=== PATIENT | female | born 1985 | race Caucasian/White ===

== ENCOUNTER 2025-07-19 12:22 | Emergency (ER) | payer OTHER, SELFPAY ==
--- NOTE | ~2025-07-19 | XR_ITS ---
XR ankle LT min 3V 07/19/2025 12:56 Indication: Left ankle pain after injury Procedure: 4 views left ankle Comparison: No prior studies for comparison. Findings: There is an ossific density medial to the talus, likely related to remote trauma. There is moderate lateral soft tissue swelling. No acute fracture or traumatic malalignment. Talar dome is unremarkable. No foreign bodies. There is a degenerative calcaneal enthesophyte. Impression: 1: No acute fracture. Reviewed, dictated and finalized at location O. Impression: 1: No acute fracture.
[2025-07-19 12:22] VITALS: BP 139/89; PULSE 76; RESP 20; TEMP 36.6; O2SAT 100
--- NOTE | 2025-07-19 12:26 | ED_ITS ---
HPI - Extremity Injury (Lower) General Chief Complaint: Extremity Injury, Lower Stated Complaint: rolled left ankle Time Seen by Provider: 07/19/25 13:06 Source: patient and RN notes reviewed Mode of arrival: ambulatory Limitations: no limitations History of Present Illness HPI Narrative: 39-year-old female presents with concern for left ankle pain. Reports she rolled her ankle.. Reports medial ankle pain. Reports it has been swollen. She has been using ibuprofen daily, using an Ez wrap it, elevating and putting ice on the ankle. MD complaint: ankle injury Related Data Home Medications ?Medication ?Instructions ?Recorded ?Confirmed ?Last Taken ?Type etonogestrel subdermal 07/19/25 Unknown History nifedipine 90 mg tablet,extended mg PO 07/19/25 Unkno wn History release Allergies Allergy/AdvReac Type Severity Reaction Status Date / Time Sulfa (Sulfonamide Allergy Unknown Unknown Verified 07/19/25 12:39 Antibiotics) Review of Systems Review of Systems: CONSTITUTIONAL: Denies malaise, chills, sweats, or fever. SKIN: Denies rash or itching, open skin, laceration, abrasion, redness, warmth MUSCULOSKELETAL: Reports left ankle pain and swelling NEUROLOGIC: Denies numbness, weakness All systems reviewed & are unremarkable except as noted in HPI and below PMFSH Comments At time of signature, agree with nursing past medical, surgical, social and family history. There is no relevant family history pertinent to the presenting complaint Exam Narrative: GENERAL: Well-appearing, well-nourished, and in no acute distress. HEAD: Normocephalic, atraumatic. EYES: PERRLA, conjunctivae clear NECK: Supple. CHEST: Speaks in full sentences. No respiratory distress. HEART: Regular rate and rhythm. Normal and equal peripheral pulses. EXTREMITIES: Left ankle, foot, digits have grossly normal strength and sensation, grossly normal range of motion. Mild edema without erythema, warmth, ecchymosis. Normal sensation with sensitivity to light touch and pain. No point tenderness. No open wounds, no skin tenting, no devitalized tissue or atrophy, no trophic changes, no obvious deformity, alignment normal, nearby joints and structures intact. Distal pulses palpable and equal bilaterally, skin warm, dry, pink. Capillary refill less than 3 seconds. SKIN: Warm, dry, no rash. NEURO: Alert and oriented x3. PSYCH: Normal mood and affect Course Course Emergency Course: Patient is aware of diagnosis, understands and agrees to treatment plan. Anticipatory guidance given. Patient agrees to follow-up as directed and is aware of reasons to seek care at the emergency department. Portions of this record may have been created with voice recognition software Level of Care: Express Care Visit Vital Signs Vital signs: Reviewed. MDM - Extremity Injury (Lower) MDM Narrative Medical decision making narrative: The patient was evaluated by myself in the express care. History is obtained from patient who is an independent historian and physical exam was performed.? Available medical records were reviewed at this time. ? Exam findings show no acute concerns or changes; patient is non-toxic appearing and is in no distress. Patient is appropriate for outpatient treatment and follow-up. ? I have evaluated and discussed social determinants of health with the patient that could potentially impact subsequent diagnosis and treatment plans. ? Patients injury and pain is consistent with musculoskeletal etiology. No signs of neurological or vascular compromise on exam. Compartments and tissues are soft without signs of compartment syndrome. Pain is felt appropriate for further evaluation on an outpatient basis. Imaging Data My impression: Images reviewed, interpreted by radiologist, agree, see report. Radiologist's impression: XR ankle LT min 3V 07/19/2025 12:56 Indication: Left ankle pain after injury Procedure: 4 views left ankle Comparison: No prior studies for comparison. Findings: There is an ossific density medial to the talus, likely related to rem ote trauma. There is moderate lateral soft tissue swelling. No acute fracture or traumatic malalignment. Talar dome is unremarkable. No foreign bodies. There is a degenerative calcaneal enthesophyte. Impression: 1: No acute fracture. Critical Care Time Critical Care Time Critical Care Time: No Discharge Plan Discharge Clinical Impression: Ankle sprain and strain Patient Disposition: Home Condition: Stable Instructions: Ankle Sprain (ED) Additional Instructions: Avoid activities that cause pain until the pain subsides. Ice to the area 20-30 minutes 4-6 times a day Elevate above heart Elastic wrap or orthopedic splint as directed for comfort for the next 5-7 days Tylenol for lesser pain Ibuprofen regularly for the next 2-3 days for the inflammation Follow up with your primary care provider if the condition is not improving within 1 week. If the condition worsens with numbness, tingling, decrease sensation with weakness seek treatment in the emergency room immediately. Patient Language: Azeri Prescriptions: New ibuprofen 800 mg tablet 800 mg PO Q6H PRN (Reason: pain) Qty: 30 0RF No Action nifedipine 90 mg tablet extended release PO etonogestrel [Nexplanon] subdermal Follow-up/Referrals: PHYSICIAN,[facility] [Primary Care Provider, Internal Medicine] Stand Alone Forms: Work/School Release IP Time of Disposition: 13:15
--- OUTSIDE RECORDS SUMMARY | 2025-07-19 12:31 | XMS_ITS | Clinical Summary ---
Author Organization [facility] Healthcare Address [address] [place] [address] Care Team Providers Care Air Pollution Specialist Name Role Phone Minerva Raza MD Primary Care Prov ider Allergies Active Allergy Reactions Criticality Noted Date Comments Sulfa (Sulfonamide Antibiotics) Other (See comments) Low 05/09/2018 Ann Johnsons Syndrome Sukhi Kirk Syndrome Medications NIFEdipine CC 90 mg 24 hr tablet Take 1 tablet (90 mg total) by mouth daily for 30 days 06/10/2024 Active famotidine (PEPCID) 20 mg tablet Take 1 tablet (20 mg total) by mouth 2 (two) times a day as needed Active multivitamin with minerals tablet Take 1 tablet by mouth daily Active oxyCODONE-aceta minophen (PERCOCET) 5-325 mg per tabletIndicatio ns:Pain Take 1-2 tablets by mouth every 8 (eight) hours as needed for pain 20 tablet 04/11/2025 Active ibuprofen (ADVIL,MOTRIN) 800 mg tablet Take 1 tablet (800 mg total) by mouth 3 (three) times a day 21 tablet 06/16/2025 Active amoxicillin-cla vulanate (AUGMENTIN) 875-125 mg per tablet Take 1 tablet by mouth every 12 (twelve) hours for 10 days 20 tablet 06/16/2025 06/26/20 25 Active Problems Problem Noted Date Diagnosed Date Encounter for female sterilization procedure 06/2024 Breast abscess 08/09/2024 Abscess of breast 08/09/2024 Chronic hypertension in 07/24/2024 HROB: 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 Proximal femoral focal deficiency is a complex defect in which the upper part of the femur bone (in the thigh) is either malformed or missing, causing one leg to be shorter than the other. Affects about 1 in every 200,000 children, and can vary in severity from child to child. Often children with PFFD have other bone and muscle disorders -- such as malrotation, limb-length discrepancies, fibular hemimelia, joint instability and muscle weakness. Not genetically linked. Offered early anatomy - declined. Does not change her desire to carry . Plan: [x] Specialized anatomy scan at 20 weeks gestation, referred for anatomy given c/f tethered spinal cord, see problem HROB: Marijuana use during 02/06/2024 Overview (02/06/2024): UDS positive for THC at IOB visit with Dr. Gill. 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 Plan: [ ] Valtrex suppression at 36 weeks, to be prescribed by primary Ob HROB: 02/03/2024 Overview (06/28/2024): PNC tasks being performed by Dr. Gill. Per patient report, GTT not performed given nausea/vomiting in , BG have been WNL on weekly labs. 3T labs and TDap UTD. Discussed recommendation for ANT given cHTN. Anatomy US with limited views due to advanced GA (Missing Neck, profile, RVOT, 3V view, ductal arch, abdominal cord insert, lumbar/sacral spine, R forearm, R+L fingers), but on review of images by fellow/attending, no evidence of spinal anomaly. - Continue PNC with primary Ob, delivery appropriate at local hospital given current clinical status 1st Trimester: [x] Dating Criteria: FORREST 08/13/2024 based on 1T ultrasound [x] Labs: Rh pos, Ab neg, CBC wnl, Rubella imm, VZV non-imm, HIV NR, RPR NR, HepBSAg NR, Hep C Ab NR [x] vitamins [x] Genetic Screening: LR NIPT [x] Pap: Due, to be collected by primary Rouge Miller [x] EPDS: PNBHS referral (if indicated) [x] ASA at 12 weeks (if indicated) [x] DM screening: HgbA1c 5.0 2nd Trimester: [x] Anatomy ultrasound: See above [x] 1hr GTT (24-28wks): WNL per patient [x] Tdap (27-36wks): Received previously per patient 3rd Trimester: [x] CBC/HIV/RPR/T&S: WNL per patient report [x] GBS: To be obtained by primary Ob HROB: Nabeel, history of pre-eclampsia 02/03/2024 Overview (06/28/2024): Current regimen: nifedipine XL 90mg, LDASA Plan: [x] ASA at 12 weeks - taking [x] Labs (CBC, CMP, UPC) (3T repeats ordered today) [x] Serial growth ultrasound starting at 24 weeks [x] Weekly testing at 32 weeks (to be arranged by primary Ob) HROB: AMA 02/03/2024 Overview (06/28/2024): Age at delivery: 38 We discussed that advanced maternal age (AMA) is defined as maternal age >=35 years. This definition was made based on a historic risk associated with amniocentesis. AMA is associated with complications such as ectopic , spontaneous , chromosomal abnormalities, some congenital anomalies, placenta previa, gestational diabetes, preeclampsia, and delivery. Such complications may, in turn, result in . There is also an increased risk of mortality. We discussed with the patient that her risk of aneuploidy is 1 in 104 at age 38. We discussed available methods for genetic screening and diagnosis and at this time the patient desires . We also recommend detailed second-trimester ultrasound to assess for significant structural anomalies. testing may be considered based on cumulative risk, and we recommend testing above age 40. Plan/Summary of recommendations [x] Genetic testing: LR NIPT noted in chart [x] Baseline CBC/CMP/UPC ordered HROB: Bipolar 1 disorder 05/01/2017 Overview (06/28/2024): We reviewed depression/anxiety in . Generally, the risk of worsening depression or anxiety in is dependent on control prior to . Maternal depression has been associated with increased risk of and IUGR/SGA in some studies.Thus, regular follow-up with a mental health provider is recommended throughout her and . Previously discussed the management of anxiety/depression during , with an emphasis on optimizing maternal well being as untreated anxiety/depression can have devastating consequences. Patient denies concerns for manic episodes, last on medications at age 25. Current regimen: None PLAN: [x] Behavioral Health Referral Resolved Problems Problem Noted Date Diagnosed Date Resolved Date Incarcerated umbilical hernia 04/09/2025 05/09/2025 Hypertension in , b enign essential, delivered 05/20/2020 06/25/2024 Overview (08/02/2022): Had preeclampsia in 2018 . Was later diagnosed with chronic hypertension when blood pressures never resolved. Transiently required antihypertensives but was able to discontinue prior to . First BP on 02/18 was 134/88. Baseline 24 hour protein was 168 mg on 04/27. Last Assessment & Plan: Blood pressure appropriate without antihypertensives. Has started aspirin for preeclampsia prophylaxis. Maternal Medicine recommendations: 1. please submit a copy of the 24 hr urine results for review 1. orders given for this study and complete metabolic panel to be repeated if no results are provided by the referring production engine repairer 2. Goal blood pressures <155/95 1. No current indication for antihypertensive medication 3. Continue Aspirin ( 162 mg) 4. Serial growth every four weeks after 24 weeks 5. Daily kick count starting at 28 weeks 6. Weekly 10 point biophysical profile starting at 32 weeks 7. Delivery initiation at 39 weeks 8. Would benefit from Encounters Date Type Department Care Team Description 06/17/2025 11:48 PM CDT - 06/18/2025 12:20 AM CDT Emergency [facility] Emergency Department [address] [place] [address] Discharge Disposition: Left without being seen 06/15/2025 11:48 PM CDT - 06/16/2025 1:35 AM CDT Emergency [facility] Emergency Department [address] [place] [address] Dog bite of index finger, initial encounter (Primary Dx) Discharge Disposition: Discharge to home or self care 04/24/2025 1:25 PM CDT Office Visit [facility] [address] [facility] [address] [place] [id number] EyersLenore NP Incarcerated umbilical hernia (Primary Dx) from Last 3 Months Immunizations Immunization Administration Dates Next Due Rabies Immune Globulin 06/16/2025,06/16/2025,() Rabies Vaccine 06/16/2025 Tdap 06/16/2025 Surgical History Surgery Date Site/Laterality Comments DILATION AND CURETTAGE OF UTERUS INCISION AND DRAINAGE BREAST ABSCESS 08/09/2024 Left HERNIA REPAIR 04/11/2025 Umbilical Medical History Medical History Date Comments Saul-Kirk syndrome 2006 Hypertension GERD (gastroesophageal reflux disease) Umbilical hernia Social History Tobacco Use Types Packs/Day Years Used Date Smoking Tobacco: Former Cigarettes Q uit: 10/2011 Passive Smoke Exposure: Past Smokeless Tobacco: Never Tobacco Cessation:Counseling Given: No Alcohol Use Standard Drinks/Week Comments No 0 (1 standard drink = 0.6 oz pur e alcohol) [facility] Utilities Answer Date Recorded In the past 12 months has [facility] [place], gas, oil, or water [place] threatened to shut off services in your home? Yes 07/25/2024 Humiliation, Afraid, Rape, and Kick questionnair e Answer Date Recorded Within the last year, have y ou been afraid of your partner or ex-partner? No 07/25/2024 Within the last year, have y ou been humiliated or emotionally abused in other ways by your partner or ex-partner? No Within the last year, have y ou been kicked, hit, slapped, or otherwise physically hurt by your partner or ex-partner? No 07/25/2024 Within the last year, have y ou been raped or forced to have any kind of sexual activity by your partner or ex-partner? No 07/25/2024 Social Connection and Isolation Panel Answer Date Recorded In a typical week, how many times do you talk on the phone with family, friends, or neighbors? More than three times a week 07/25/2024 How often do you get togethe r with friends or relatives? Three times a week 07/25/2024 How often do you attend chur ch or restorationism services? Never 07/25/2024 Do you belong to any clubs o r organizations such as buddhist groups, unions, fraternal or athletic groups, or school groups? Yes 07/25/2024 How often do you attend meet ings of the clubs or organizations you belong to? More than 4 times per year 07/25/2024 Are you , , di vorced, , never , or living with a partner? Living with partner 07/25/2024 AUDIT-C Answer Date Recorded Q1: How often do you have a drink containing alc ohol? 2-3 times a week 04/11/2025 Q2: How many drinks containi ng alcohol do you have on a typical day when you are drinking? 1 or 2 04/11/2025 Q3: How often do you have si x or more drinks on one occasion? Never 04/11/2025 Overall Financial Resource Strain (CARDIA) Answe r Date Recorded How hard is it for you to pa y for the very basics like food, housing, medical care, and heating? Very hard 07/25/2024 PHQ-2 Answer Date Recorded PHQ-2 Total Score 0 07/25/2024 [facility] Occupational Stress Questionnaire Answer Date Recorded Do you feel stress - tense, restless, nervous, or anxious, or unable to sleep at night because your mind is troubled all the time - these days? Not at all 07/25/2024 Exercise Vital Sign Answer Date Recorde d On average, how many days pe r week do you engage in moderate to strenuous exercise (like a brisk walk)? 6 days 07/25/2024 On average, how many minutes do you engage in exercise at this level? 60 min 07/25/2024 Hunger Vital Sign Answer Date Recorded Within the past 12 months, y ou worried that your food would run out before you got the money to buy more. Never true 07/25/20 24 Within the past 12 months, t he food you bought just didn't last and you didn't have money to get more. Never true 07/25/2024 PRAPARE - Transportation Answer Date Re corded In the past 12 months, has l ack of transportation kept you from medical appointments or from getting medications? No 06/28 In the past 12 months, has l ack of transportation kept you from meetings, work, or from getting things needed for daily living? No 07/25/2024 [place] Depression Scale Answer Date Recorded [place] Depression Scale Total 2 07/25/2024 The thought of harming myself has occurred to me . Never 07/25/2024 PHQ-9 Answer Date Recorded PHQ-9 Total Score 3 06/20/2024 Housing Stability Vital Sign Answer Silvio e Recorded In the last 12 months, was t here a time when you were not able to pay the mortgage or rent on time? Yes 07/25/2024 In the past 12 months, how m any times have you moved where you were living? 1 07/25/2024 At any time in the past 12 m [facility], were you homeless or living in a detention (including now)? Yes 07/25/2024 Personal Safety Answer Date Recorded Have you ever been in or are you currently in a harmful physical or emotional relationship or is someone making you feel afraid or unsafe? Denies 06/17/2025 Comments No Sex and Gender Information Value Date Recorded Sex Assigned at Not on file Legal Sex Female 9:10 AM CDT Gender Identity Not on file Sexual Orientation Not on file Obstetrics History Para Term AB IAB SAB Ectopic Multiple Livin g Live Births 14 6 6 0 8 2 5 0 6 6 Date Outcome GA Total Labor Labor/2nd/3rd Weight Sex Type Anes PTL Cecilia A1 A5 Name Clin AB 1 SAB SAB 3 SAB SAB 3 SAB SAB 4 SAB SAB 4 SAB SAB 9 IAB TAB 2009 Term 41w 0d M Vag-Sp ont Epidur al Livin g Complications:None 2011 Term 40w 0d 3.204 kg (7 lb 1 oz) F Vag-Sp ont None N Livin g Complications:None Delivery [place] IAB TAB 2016 Term 39w 0d F Vag-Sp ont Epidur al Livin g 2017 Term 37w 0d 0h 24m 0h 16m/0h 08m 3.132 kg (6 lb 14.5 oz) M Vag-Sp ont Epidur al N Livin g 9 9 PRAVL IK,AMALIA David Junior MD Complications:Precipitous La bor (<3 hours) Delivery [facility]) 2019 Term 37w 6d 0h 04m 0h 04m/ 3.33 kg (7 lb 5.5 oz) M Vag-Sp ont Epidur al N Livin g 9 9 PRAVL IK,BA BY ALISSON singleton MD Complications:None Delivery Location:[facility] ([facility] 5 LDR) 2023 Term 37w 1d 0h 14m 0h 06m/0h 08m 3.075 kg (6 lb 12.5 oz) M Vagina l None N Livin g 8 9 Pancho Robertson on Naveen Campbell MD Complications:Precipitous La bor (<3 hours) Delivery Location:[facility] L AND D) Comments 1st child (son) lives in [facility] with FOB d/t severe ADHD, Aspergers, Autistic and in a government program. 2nd child (daughter) lives in [facility] with FOB 3rd child (daughter) lives with patient. 4rd child 11/06/2018: Open Adoption 5th child 10/14/2020: Son with PFDD, lives with family Last Filed Vital Signs Vital Sign Reading Time Taken Comments Blood Pressure 173/118 06/17/2025 11:56 PM CDT Pulse 90 06/17/2025 11:56 PM CDT Temperature 37 C (98.6 F) 06/17/2025 11:56 PM CDT Respiratory Rate 18 06/17/2025 11:56 PM CDT Oxygen Saturation 100% 06/17/2025 11:56 PM CDT Inhaled Oxygen Concentration - - Weight 95.7 kg (211 lb) 06/17/2025 11:56 PM CDT Height 170.2 cm (5' 7) 06/17/2025 11:56 PM CDT Body Mass Index 33.05 06/17/2025 11:56 PM CDT Plan of Treatment Health Maintenance Due Date Last Done Comments Cervical Cancer Screening 1985 Varicella Vaccines (1 of 2 - 13+ 2-dose series) 1998 Hepatitis B Screening 2003 Regular Well Visit/Exam 18-64 2003 HPV Vaccines (1 - 3-dose SCDM series) 2012 Depression Screening 07/25/2025 07/25/2024, 07/19/2024, 07/09/2024, Additional history exists Influenza Vaccine (#1) 2025 DTaP/Tdap/Td Vaccine (6 - Td or Tdap) 06/16/2035 06/16/2025, 05/22/2024, 08/05/2020, Additional history exists Hepatitis C Screening Completed 02/06/2024 Pneumococcal vaccine <65 Aged Out No longer eligible based on patient's age to complete this topic Medical Devices Implanted Type Area Workforce Management Coordinator Device Identifier Shelf Expiration Date Model / Serial / Lot [employer] Ventralex St Sepra Sorbaflex 1.7in [place] Open Bioresorbable [id number] - [id number] Implanted:Qty: 1 on 04/11/2025 by Adonis Mobley MD at [facility] N/A: Umbilical [employer] 09/23/2026 [id number] / / [id number] Procedures Procedure Name Priority Date/Time Associated Diagnosis Comments ED DIGITAL BLOCK Routine 06/16/2025 1:14 AM CDT XR HAND LEFT 3 OR MORE VIEWS ED 06/16/2025 12:14 AM CDT HEPATITIS C ANTIBODY Routine 02/06/2024 11:07 AM CDT Supervision of high-risk , first trimester from Last 3 Months or Most Recently Relevant to Health Maintenance Results * Digital Block (06/16/2025 1:14 AM CDT) Narrative Madeline Vee PA - 06/16/2025 1:14 AM CDT Madeline Vee PA 06/16/2025 1:15 AM Digital Block Date/Time: 06/16/2025 1:14 AM Performed by: Madeline Vee PA Authorized by: Minerva Jimenez MD Effort Protocol: RN Notified of Procedure: yes Informed consent: Risks, benefits, alternatives discussed Patient's stated name/ matches armband: Yes Allergies confirmed: yes Consent form signed, dated, timed; matches correct patient, intended procedure and site: No consent form due to emergent status Imaging: Pertinent imaging reviewed, correctly oriented and match to patient identifiers Lab/Diag test results: N/a Supplies, devices and special equipment are available: yes Site/side marked: yes Immediately prior to the procedure a time out was called: a verbal verification by the procedure participants confirmed correct patient identity, correct site/side marked and visible (if applicable); agreement on procedure to be done; and correct patient positioning Indications: Indications: Pain relief Location: Block location: Finger Finger blocked: L index finger Pre-procedure details: Neurovascular status: intact Skin preparation: Antiseptic wash and povidone-iodine Procedure details (see MAR for exact dosages): Needle gauge: 27 G Anesthetic injected: Lidocaine 1% Technique: Metacarpal block Injection procedure: Anatomic landmarks identified Post-procedure details: Outcome: Pain relieved Patient tolerance of procedure: Tolerated well, no immediate complications Minerva Jimenez MD IN CLINIC/BEDSIDE ORDERABLES Fin al Result * XR Hand Left 3 or More Views (06/16/2025 12:14 AM CDT) Anatomical Region Laterality Modality Upper Extremities, Hand Left Computed Radiography 06/16/2025 12:3 6 AM CDT Narrative 06/16/2025 12:38 AM CDT EXAM DESCRIPTION: XR HAND LEFT 3 OR MORE VIEWS REASON FOR STUDY: dog bite C/o a dog bite to her L hand Tonight. Unsure of animal vaccinations. Lacs noted to L 2nd digit. 2nd Digit hurts the most. TECHNIQUE: 3 radiographic view(s) of the left hand . COMPARISON: None FINDINGS: No fracture or dislocation is identified. Soft tissues appear grossly unremarkable. Negative ulnar variance is noted. No foreign bodies are identified. No air is seen in the soft tissues. IMPRESSION: No acute osseous abnormality. THIS IS AN ELECTRONICALLY VERIFIED FINAL REPORT 06/16/2025 12:38 AM - Electronically signed by Daniel HEAD: ADILENE Report ID: [id number] Reading Location: [id number] Procedure Note Daniel Lara MD - 06/16/2025 EXAM DESCRIPTION: XR HAND LEFT 3 OR MORE VIEWS REASON FOR STUDY: dog bite C/o a dog bite to her L hand Tonight. Unsure of animal vaccinations.Lacs noted to L 2nd digit. 2nd Digit hurts the most. TECHNIQUE: 3 radiographic view(s) of the left hand . COMPARISON: None FINDINGS: No fracture or dislocation is identified. Soft tissues appear grossly unremarkable. Negative ulnar variance is noted. No foreign bodies are identified. No air is seen in the soft tissues. IMPRESSION: No acute osseous abnormality. THIS IS AN ELECTRONICALLY VERIFIED FINAL REPORT 06/16/2025 12:38 AM - Electronically signed by Daniel HEAD: ADILENE Report ID: [id number] Reading Location: [id number] us Madeline DICK IMG XR PROCEDURES Final Result * Hepatitis C antibody Blood (02/06/2024 11:07 AM CDT) Hep C Ab Nonreactive Nonreactive Comment:Antibodies to HCV no t detected. Does NOT exclude the possibility of recent exposure to HCV. Current interpretive data was last revised on 22 Blood 02/06/2024 11:0 7 AM CDT 02/06/2024 12:18 PM CDT us Brenna Meadows MD LAB MICROBIOLOGY - GENERAL ORDERABLES Final Result [facility] [address] [place] [address] from Last 3 Months or Most Recently Relevant to Health Maintenance Insurance Advance Directives For more information, please contact: [phone] * Full Code (Latest Code Status on File) Date Activated Date Inactivated Comments 04/09/2025 5:48 PM 04/10/2025 6:26 PM * Full Code Date Activated Date Inactivated Comments 07/24/2024 11:33 AM 07/25/2024 9:25 PM * Full Code Date Activated Date Inactivated Comments 07/24/2024 6:22 AM 07/24/2024 11:33 AM Full CPR in case of cardiopulmonary arrest * Full Code Date Activated Date Inactivated Comments 11/06/2018 8:12 PM 11/08/2018 2:01 PM * Full Code Date Activated Date Inactivated Comments 11/06/2018 3:15 PM 11/06/2018 8:12 PM Full CPR i n case of cardiopulmonary arrest Care Teams Air Pollution Specialist Relationship Specialty Start Date End Date Minerva Raza MD [id number] [facility] [place] [id number] PCP - General Family Medicine 06/15/25
== END 2025-07-19 13:18 | disposition home or self-care (01) ==
PROVIDERS: Emergency Provider Nurse Practitioner
DX: S93.402A Sprain of unspecified ligament of left ankle, initial encounter (principal); S96.912A Strain of unspecified muscle and tendon at ankle and foot level, left foot, initial encounter; X50.9XXA Other and unspecified overexertion or strenuous movements or postures, initial encounter; I10 Essential (primary) hypertension
CPT/HCPCS: 73610; 99213; G0463